=== PATIENT | female | born 1985 | race African-American/Black ===

== ENCOUNTER 2016-09-27 19:27 | Emergency (ER) | payer MEDICAID ==
[~2016-09-27] VITALS: Ht 165.1 cm; Wt 66.0 kg
[2016-09-27 19:50] LABS: BASOPHILS # (AUTO) 0.12 K/uL (0.00-0.20); BASOPHILS % (AUTO) 1.8 % (0.0-2.0); EOSINOPHILS # (AUTO) 0.33 K/uL (0.00-0.70); EOSINOPHILS % (AUTO) 4.85 % (1.0-6.0); HEMATOCRIT 36.5 % (36-46); HEMOGLOBIN 12.1 g/dL (12.0-16.0); LYMPHOCYTES # (AUTO) 2.5 K/uL (1.0-4.8); LYMPHOCYTES % (AUTO) 36.4 % (22.0-44.0); MEAN CORPUSCULAR HEMOGLOBIN 30.9 pg (26.0-34.0); MEAN CORPUSCULAR HGB CONC 33.2 G/dL (31.0-37.0); MEAN CORPUSCULAR VOLUME 93 fL (80-100); MONOCYTES # (AUTO) 0.5 K/uL (0.1-1.0); MONOCYTES % (AUTO) 7.4 % (2.0-9.0); NEUTROPHILS # (AUTO) 3.4 K/uL (1.8-7.7); NEUTROPHILS % (AUTO) 49.5 % (40.0-70.0); PLATELET COUNT (AUTO) 251 K/uL (150-450); RED BLOOD CELL COUNT(AUTO) 3.93 MIL/uL (4.00-5.20); RED CELL DISTRIBUTION WIDTH 13.5 % (11.5-14.5); WHITE BLOOD COUNT (AUTO) 6.8 K/uL (4.5-11.0)
[2016-09-27 19:59] LABS: ANION GAP 5 mmol/L (8-16); CALCIUM, TOTAL 8.6 mg/dL (8.8-10.5); CARBON DIOXIDE 30 mmol/L (22-29); CHLORIDE 105 mmol/L (98-107); CREATININE 0.95 mg/dL (0.60-1.30); GLOMERULAR FILTR. RATE CALC > 60 mL/min (>60); POTASSIUM 3.8 mmol/L (3.5-5.1); SODIUM SERUM 140 mmol/L (136-145); UREA NITROGEN, BLOOD 17 mg/dL (7-18)
[2016-09-27 20:05] LABS: ALANINE AMINOTRANSFERASE 20 U/L (12-78); ALBUMIN 3.7 g/dL (3.4-5.0); ASPARTATE AMINOTRANSFERASE 15 U/L (15-37); BILIRUBIN,TOTAL 0.2 mg/dL (0.1-1.0); TOTAL PROTEIN, SERUM 6.7 g/dL (6.4-8.2)
[2016-09-27 20:09] LABS: APPEARANCE,URINE SL CLOUDY (CLEAR); GLUCOSE, URINE (UA) NEGATIVE (NEGATIVE); KETONES,URINE NEGATIVE (NEGATIVE); LEUKOCYTE ESTERASE ,URINE NEGATIVE (NEGATIVE); OCCULT BLOOD,URINE LARGE (NEGATIVE); PROTEIN,URINE TRACE (NEGATIVE)
[2016-09-27 20:10] LABS: ADD UA MICROSCOPIC YES
[2016-09-27 20:32] LABS: SQUAMOUS EPITHELIAL CELL,UR Moderate /LPF (None Seen); WBC,URINE 0-2 /HPF (0-5)
[2016-09-27] MEDS ORDERED: TraMADol HCL 50 MG TABLET PO ONE (20:45)
[2016-09-27 21:26] VITALS: BP 117/60
[2016-09-27] MEDS ORDERED: MORPHINE SULFATE 4 MG/ML SYRINGE IM ONE (21:30)
[2016-09-27] MEDS ORDERED: ONDANSETRON HCL 4 MG TABLET PO ONE (21:30)
== END 2016-09-27 21:32 | disposition home or self-care (01) ==
LOC: EMS 19:29
DX: N92.0 Excessive and frequent menstruation with regular cycle (principal); J45.909 Unspecified asthma, uncomplicated; F17.210 Nicotine dependence, cigarettes, uncomplicated; Z88.6 Allergy status to analgesic agent; Z88.5 Allergy status to narcotic agent
CPT/HCPCS: 36415; 80053; 81001; 83690; 84703; 85025; 96372; 99284; J2270; Q0162

== ENCOUNTER 2017-05-18 06:03 | Emergency (ER) | payer MEDICAID ==
[~2017-05-18] VITALS: Ht 165.1 cm; Wt 70.5 kg
[2017-05-18] MEDS ORDERED: HydrOXYzine PAMOATE 50 MG CAPSULE PO ONE (06:45)
[2017-05-18] MEDS ORDERED: LORazepam 2 MG TABLET PO ONE (08:00)
[2017-05-18 08:12] VITALS: BP 120/65
[2017-05-18] MEDS ORDERED: LORazepam 1 MG TABLET PO ONE (08:15)
== END 2017-05-18 08:16 | disposition home or self-care (01) ==
LOC: EMS 06:04
DX: F41.9 Anxiety disorder, unspecified (principal); J45.909 Unspecified asthma, uncomplicated; F17.210 Nicotine dependence, cigarettes, uncomplicated; G47.00 Insomnia, unspecified
CPT/HCPCS: 99283

== ENCOUNTER 2017-09-28 05:08 | Emergency (ER) | payer MEDICAID ==
[~2017-09-28] VITALS: Ht 165.1 cm; Wt 67.3 kg
[2017-09-28] MEDS ORDERED: IBUP-2071 PO (05:18)
[2017-09-28 06:12] LABS: BASOPHILS # (AUTO) 0.03 K/uL (0.00-0.20); BASOPHILS % (AUTO) 0.7 % (0.0-2.0); EOSINOPHILS # (AUTO) 0.31 K/uL (0.00-0.70); EOSINOPHILS % (AUTO) 6.88 % (1.0-6.0); HEMATOCRIT 36.5 % (36-46); HEMOGLOBIN 12.1 g/dL (12.0-16.0); LYMPHOCYTES # (AUTO) 1.9 K/uL (1.0-4.8); LYMPHOCYTES % (AUTO) 42.4 % (22.0-44.0); MEAN CORPUSCULAR HEMOGLOBIN 31.2 pg (26.0-34.0); MEAN CORPUSCULAR VOLUME 94 fL (80-100); MONOCYTES # (AUTO) 0.4 K/uL (0.1-1.0); MONOCYTES % (AUTO) 8.5 % (2.0-9.0); NEUTROPHILS # (AUTO) 1.9 K/uL (1.8-7.7); NEUTROPHILS % (AUTO) 41.5 % (40.0-70.0); PLATELET COUNT (AUTO) 248 K/uL (150-450); RED BLOOD CELL COUNT(AUTO) 3.87 MIL/uL (4.00-5.20); RED CELL DISTRIBUTION WIDTH 13.8 % (11.5-14.5)
[2017-09-28] MEDS ORDERED: ONDANSETRON HCL 4 MG TABLET PO ONE (06:15)
[2017-09-28] MEDS ORDERED: HydrOXYzine PAMOATE 50 MG CAPSULE PO ONE (06:15)
[2017-09-28 07:03] VITALS: BP 109/63
== END 2017-09-28 07:08 | disposition home or self-care (01) ==
LOC: EMS 05:09
DX: N92.1 Excessive and frequent menstruation with irregular cycle (principal); F41.9 Anxiety disorder, unspecified; J45.909 Unspecified asthma, uncomplicated; Z77.22 Contact with and (suspected) exposure to environmental tobacco smoke (acute) (chronic); Z88.6 Allergy status to analgesic agent; Z88.5 Allergy status to narcotic agent
CPT/HCPCS: 36415; 84702; 85025; 99284; Q0162

== ENCOUNTER 2018-08-07 06:21 | Emergency (ER) | payer MEDICAID, OTHER ==
[~2018-08-07] VITALS: Ht 162.6 cm; Wt 71.8 kg
[~2018-08-07 06:21] MED LIST: IBUP-2071 PO
[2018-08-07] MEDS ORDERED: TRAM50TA4 PO (06:27)
[2018-08-07] MEDS ORDERED: ONDANSETRON HCL 4 MG/2 ML VIAL IVP ONE (06:45)
[2018-08-07] MEDS ORDERED: KETOROLAC TROMETHAMINE 30 MG/ML VIAL IVP ONE (06:45)
[2018-08-07] MEDS ORDERED: LORazepam 1 MG TABLET PO ONE (07:00)
[2018-08-07] MEDS ORDERED: FentaNYL CITRATE-PF 100 MCG/2 ML VIAL IVP ONE (09:15)
[2018-08-07 10:10] VITALS: BP 102/68
== END 2018-08-07 10:25 | disposition home or self-care (01) ==
LOC: EMS 06:21
DX: M54.16 Radiculopathy, lumbar region (principal); J45.909 Unspecified asthma, uncomplicated; Z88.5 Allergy status to narcotic agent; Z88.6 Allergy status to analgesic agent; Z77.22 Contact with and (suspected) exposure to environmental tobacco smoke (acute) (chronic)
CPT/HCPCS: 72131; 81025; 96374; 96375; 99284; J1885; J2405; J3010

== ENCOUNTER 2019-04-02 02:02 | Emergency (ER) | payer OTHER ==
[~2019-04-02] VITALS: Ht 165.1 cm; Wt 67.7 kg
[~2019-04-02 02:02] MED LIST changes: +TRAM50TA4 PO
[2019-04-02] MEDS ORDERED: ONDANSETRON HCL 4 MG TABLET PO ONE (03:45)
[2019-04-02] MEDS ORDERED: CYCLOBENZAPRINE HCL 10 MG TABLET PO ONE (03:45)
[2019-04-02 04:00] VITALS: BP 106/69
== END 2019-04-02 04:10 | disposition home or self-care (01) ==
LOC: EMS 02:04
DX: M62.838 Other muscle spasm (principal); F99 Mental disorder, not otherwise specified; J45.909 Unspecified asthma, uncomplicated; Z79.899 Other long term (current) drug therapy; Z88.5 Allergy status to narcotic agent; Z88.8 Allergy status to other drugs, medicaments and biological substances
CPT/HCPCS: 99283; Q0162

== ENCOUNTER 2024-04-11 16:20 | Emergency (ER) | payer OTHER ==
[~2024-04-11] VITALS: Ht 165.1 cm; Wt 63.6 kg
[~2024-04-11 16:20] MED LIST changes: +IBUP-1493 PO; -IBUP-2071 PO; -TRAM50TA4 PO
[2024-04-11 17:16] VITALS: TEMP 98.9
[2024-04-11 17:21] VITALS: BP 137/80; PULSE 91; RESP 16
[2024-04-11] MEDS ORDERED: BUSP5TAB20 PO (17:26)
[2024-04-11] MEDS ORDERED: ESCI-8 PO (17:26)
[2024-04-11] MEDS: KETOROLAC TROMETHAMINE 30 MG/ML VIAL IM ONE (18:00)
== END 2024-04-11 18:13 | disposition home or self-care (01) ==
LOC: EMS 16:20
DX: R51.9 Headache, unspecified (principal); F41.9 Anxiety disorder, unspecified; J45.909 Unspecified asthma, uncomplicated; Z88.5 Allergy status to narcotic agent; Z88.6 Allergy status to analgesic agent
CPT/HCPCS: 99283; 96372; J1885